=== PATIENT | female | born 1975 | race Caucasian/White ===

== ENCOUNTER 2018-01-18 23:14 | Emergency (ER) | payer SELFPAY ==
[2018-01-18] MEDS ORDERED: ONDANSETRON 4 MG TABLET PO ONE (23:25)
[2018-01-18] MEDS ORDERED: RANITIDINE HCL 150 MG TABLET (FP) PO ONE (23:25)
--- NOTE | 2018-01-18 23:34 | PDOC ---
History of Present Illness - General Chief Complaint: Allergic Reaction Stated Complaint: ALLERGIC REACTION Time Seen by Provider: 01/18/18 23:24 History Source: Patient Exam Limitations: No Limitations - History of Present Illness Initial Comments: 01/19/18 01:01 42-year-old female with past medical history mitral valve prolapse presents with ALLERGIC reaction after eating a cheese ball. Patient ate some food and started developing nausea, rash and throat closing-like sensation of difficulty breathing. Denies chest pain or syncope. Past History - Past Medical History Allergies/Adverse Reactions: Allergies Allergy/AdvReac Type Severity Reaction Status Date / Time acetaminophen [From Tylenol] Allergy Verified 01/18/18 23:24 aspirin Allergy Verified 01/18/18 23:24 ibuprofen Allergy Verified 01/18/18 23:23 sulfur [From Sulfur-8] Allergy Verified 01/18/18 23:23 Home Medications: Ambulatory Orders Diphenhydramine HCl [Benadryl -] 25 mg PO Q6H PRN #28 capsule 01/19/18 Famotidine [Pepcid] 20 mg PO BID PRN #20 tablet 01/19/18 Ondansetron HCl [Zofran] 4 mg PO Q8H PRN #12 tablet 01/19/18 Prednisone [Deltasone] 60 mg PO DAILY #6 tablet 01/19/18 Review of Systems - Review of Systems Able to Perform ROS?: Yes Comments:: 01/19/18 01:01 GENERAL/CONSTITUTIONAL: [No fever or chills. No weakness. No weight change.] HEAD, EYES, EARS, NOSE AND THROAT: [No change in vision. No ear pain or discharge. No sore throat.] CARDIOVASCULAR: [No chest pain] + difficulty breathing RESPIRATORY: [No cough, wheezing, or hemoptysis.] GASTROINTESTINAL: [No vomiting, diarrhea or constipation. No rectal bleeding.] + nausea GENITOURINARY: [No dysuria, frequency, or change in urination.] MUSCULOSKELETAL: [No joint or muscle swelling or pain. No neck or back pain.] SKIN AND BREASTS: [No rash or easy bruising.] NEUROLOGIC: [No headache, vertigo, loss of consciousness, or loss of sensation.] PSYCHIATRIC: [No depression or anxiety.] ENDOCRINE: [No increased thirst. No abnormal weight change.] HEMATOLOGIC/LYMPHATIC: [No anemia, easy bleeding, or history of blood clots.] ALLERGIC/IMMUNOLOGIC: [No hives or skin allergy. No latex allergy.] *Physical Exam - Physical Exam Comments: 01/19/18 01:02 GENERAL: Awake, alert, and fully oriented, in no acute distress HEAD: No signs of trauma EYES: PERRLA, EOMI, sclera anicteric, conjunctiva clear ENT: Auricles normal inspection, hearing grossly normal, nares patent, oropharynx clear without exudates. Moist mucosa NECK: Normal ROM, supple, LUNGS: Breath sounds equal, clear to auscultation bilaterally. No wheezes, and no crackles HEART: Regular rate and rhythm, normal S1 and S2, no murmurs, rubs or gallops ABDOMEN: Soft, nontender, normoactive bowel sounds. No guarding, no rebound. No masses EXTREMITIES: Normal range of motion, no edema. No clubbing or cyanosis. No cords, erythema, or tenderness NEUROLOGICAL: Cranial nerves II through XII grossly intact. Normal speech, normal gait SKIN: Warm, Dry, normal turgor, no rashes or lesions noted. Medical Decision Making - Medical Decision Making 01/18/18 23:31 A portion of this note was documented by scribe services under my direction. I have reviewed the details of the note, within reason, and agree with the documentation with the following case summary and management plan written by me. Patient treated in the ED. Nursing notes are reviewed and incorporated into the medical decision-making. Vital signs reviewed. Peripheral IV access obtained by the nurse, laboratory studies are drawn and sent, reviewed and interpreted by myself. 42-year-old female with past medical history mitral valve prolapse presents with ALLERGIC reaction after eating a cheese ball. Patient ate some food and started developing nausea, rash and throat closing-like sensation of difficulty breathing. Denies chest pain or syncope. Patient is having ALLERGIC reaction. Patient was given 50 mg of IM Benadryl and 10m g of IM Decadron by EMS. Patient airway status is preserved. We'll give more medications, Zofran, Zantac and observe the patient. Patient is a difficult IV stick and the patient prefers oral medications which I'm okay with. 01/19/18 01:02 Patient has been observed and feels significantly better. Will have the patient discharged home with strict return precautions. Will give her a referral to an fire prevention forester. Pt states that she absolutely does not want epipen as her chef & owner recommended against it 2/2 MVP. Will advise her to check in with her chef & owner regarding this and have her follow up. I discussed the physical exam findings, ancillary test results and final diagnoses with the patient. I answered all of the patient's questions. The patient was satisfied with the care received and felt comfortable with the discharge plan and treatment plan. The patient will call their primary care physician within 24 hours to arrange follow-up and will return to the Emergency Department with any new, persistant or worsening symptoms. *DC/Admit/Observation/Transfer Diagnosis at time of Disposition: Allergic reaction Qualifiers: Encounter type: initial encounter Qualified Code(s): T78.40XA - Allergy, unspecified, initial encounter - Discharge Dispostion Disposition: HOME Condition at time of disposition: Good Decision to Admit order: No - Prescriptions Prescriptions: Diphenhydramine HCl [Benadryl -] 25 mg PO Q6H PRN #28 capsule PRN Reason: Rash / Itching Famotidine [Pepcid] 20 mg PO BID PRN #20 tablet PRN Reason: Gastritis Ondansetron HCl [Zofran] 4 mg PO Q8H PRN #12 tablet PRN Reason: Nausea Prednisone [Deltasone] 60 mg PO DAILY #6 tablet - Referrals Referrals: Ghassan Thapa MD [Staff Physician] - - Patient Instructions Printed Discharge Instructions: DI for General Allergic Reactions Additional Instructions: Please take the medications as prescribed. For the next two days, take the prednisone. This medication can cause acid reflux (gastritis), so please take with food. You may take 20 mg pepcid every 12 hours as needed for gastritis. Take 25 mg benadryl every 6 to 8 hours as needed for itching. For nausea, take zofran as needed as prescribed. It is very important that you make an appointment with an fire prevention forester. Avoid cheese balls. Call and schedule an appointment with an fire prevention forester. Print Language: PANAMANIAN - Post Discharge Activity
[2018-01-18 23:44] VITALS: BMI 21.7
[2018-01-19 00:59] VITALS: BP 108/72; PULSE 78
== END 2018-01-19 01:22 | disposition home or self-care (01) ==
LOC: FER 23:14
DX: T78.40XA Allergy, unspecified, initial encounter (principal)
CPT/HCPCS: 99282-25

== ENCOUNTER 2018-04-24 15:32 | Emergency (ER) | payer OTHER ==
--- NOTE | 2018-04-24 15:43 | PDOC ---
History of Present Illness - General Chief Complaint: Respiratory Stated Complaint: COLD SYMPTOMS FOR 3 DAYS Time Seen by Provider: 04/24/18 15:43 History Source: Patient Exam Limitations: No Limitations - History of Present Illness Initial Comments: HPI: 42 y/o female presenting to [facility] complaining of cough x3 days. States it is productive of yellow sputum. Endorses anterior chest wall pain only while coughing. Endorses shortness of breath but no change in activity level. Vomited three times over the past two days. Each episode described as nonbloody or bilious. Endorses generalized joint aches and fever to 100.0. Attempted relief with nebulized Ipratropium; this medication was [place]. Reports minimal relief. Pt denies respiratory history. Also attempted relief with Amoxicillin, which she had left over from old prescription. Son had similar symptoms two weeks ago. Medical Hx: - Pt denies past medical history. Denies prescription medications. Surgical Hx: - Pt denies past surgical history. Past History - Past Medical History Allergies/Adverse Reactions: Allergies Allergy/AdvReac Type Severity Reaction Status Date / Time ibuprofen Allergy Severe Difficulty Verified 04/24/18 15:36 Breathing acetaminophen [From Tylenol] Allergy Mild Rash Verified 04/24/18 15:36 aspirin Allergy Mild Rash Verified 04/24/18 15:36 levofloxacin Allergy Mild Rash Verified 04/24/18 15:36 sulfur [From Sulfur-8] Allergy Mild Rash Verified 04/24/18 15:36 Home Medications: Ambulatory Orders Azithromycin [Zithromax -] 250 mg PO UTDICT #6 tab 04/24/18 COPD: No - Suicide/Smoking/Psychosocial Hx Smoking History: Never smoked Have you smoked in the past 12 months: No Hx Alcohol Use: No Drug/Substance Use Hx: No Substance Use Type: None Review of Systems - Review of Systems Able to Perform ROS?: Yes Comments:: In addition to that documented in the HPI above, the additional ROS was obtained : Constitutional: Endorses fevers and chills Eyes: Denies vision changes ENMT: Denies sore throat CV: Per HPI Resp: Per HPI GI: Endorses vomiting. Denies diarrhea : Denies painful urination MSK: Denies recent trauma Skin: Denies new rashes Neuro: Denies new numbness or tingling or weakness Endocrine: Denies polyuria Heme: Denies bleeding or bruising *Physical Exam - Physical Exam Comments: Constitutional: Well-developed, well-nourished, nontoxic female in no acute distress or obvious discomfort. Found semi-fowlers on hospital bed. Initially observed walking unassisted through the department without difficulty. Alert and oriented x4. Answered all questions appropriately and completely. Speech was non-labored, non-pressured. Coughing during exam, dry sounding. Head: Normocephalic. No obvious external signs of trauma. Eyes: Pupils 4mm and PERRL bilaterally. Sclerae white. Conjunctiva moist and not injected. EARS: Hearing grossly intact. NOSE: No nasal discharge. THROAT: Oral cavity and pharynx normal. No inflammation, swelling, exudate, or lesions. Moist mucosa. Teeth and gingiva in good general condition. Neck: Supple, trachea is midline. Cardiovascular: Regular rate and regular rhythm. No murmur, rubs, clicks, or gallops. Peripheral pulses: Radial pulses full. Respiratory: Breathing unlabored. Equal chest rise and fall. Mild end expiratory wheezing diffusely. No stridor, rhonchi, or focal consolidation. Gastrointestinal: abdomen is soft, non-tender, non-distended. Neuro: Alert and oriented. Moving all four extremities spontaneously. Gait normal. Skin: Warm, dry, and intact. No bruising, rashes, or other lesions. Cap refill < 2 seconds. Psych: Affect: appropriate. Mood: normal. Medical Decision Making - Medical Decision Making *Reviewed vital signs, nursing notes, and prior visit documentation (if available). 42 y/o female presenting with cough x3 days with 3 episodes of vomiting. No h/o of respiratory disease. Attempted relief with Ipratropium and Amoxicillin. Afebrile. Vitals unremarkable for hypotension or tachycardia. Physical exam as described above. Pt well appearing. Suspect viral URI versus bronchitis. Low suspicion for pneumonia. Will obtain CXR to further evaluate. Ordered single DuoNeb for wheeze. CXR unremarkable for acute cardiopulmonary process per ED wet read. Formal radiology report pending. Continue to have low suspicion for pneumonia. Repeat chest auscultation improved. Wheezing resolved. Good air movement bilaterally. Even though symptoms are likely viral in origin, will prescribe Z-pack in order to complete outpatient antibiotic therapy pt self initiated. Discussed imaging results with pt. Answered all questions. Provided return precautions. Pt expressed verbal understanding and agreement with plan to discharge home with outpatient follow up. *DC/Admit/Observation/Transfer Diagnosis at time of Disposition: Cough - Discharge Dispostion Disposition: HOME Condition at time of disposition: Stable Decision to Admit order: No - Prescriptions Prescriptions: Azithromycin [Zithromax -] 250 mg PO UTDICT #6 tab - Referrals - Patient Instructions Printed Discharge Instructions: DI for Viral Upper Respiratory Infection -- Adult Additional Instructions: You were seen today for coughing and general malaise for the past three days. Your chest xray does not show signs of a pneumonia. Your symptoms are likely caused by a upper respiratory viral infection. Antibiotics do not help with viral infections but because you started taking Augmentin, I have sent a prescription for Azithromycin to your pharmacy. Stop taking the Augmentin and start taking the Azithromycin as directed on the package insert. You should follow up with your primary care doctor within the next week to make sure you are healing. Go to the nearest emergency department if your condition worsens or you feel like you need additional emergency evaluation. Lo kumar visto hoy por toser y malestar general sangita los ltimos jazmin nuñez. Macdonald radiografa de trax no muestra signos de neumona. Renae sntomas son probablemente causados ??por jorgito infeccin viral del tracto respiratorio superior. Los antibiticos no ayudan con las infecciones virales, clarissa rodrigo comenz a silas Augmentin, le envi jorgito receta de azitromicina a macdonald farmacia. Deje de silas Augmentin y comience a silas Azithromycin rodrigo se indica en el prospecto. Debe hacer un seguimiento con macdonald mdico de atencin primaria dentro de la prxima semana para asegurarse de que est sanando. Dirjase al departamento de emergencias ms cercano si macdonald condicin empeora o si simon que necesita jorgito evaluacin de emergencia adicional. Print Language: TURKISH - Post Discharge Activity
[2018-04-24 15:54] VITALS: BP 125/74; PULSE 106; TEMP 99.3; BMI 26.4
[2018-04-24] MEDS ORDERED: ALBUTEROL SO4 2.5/IPRATROPIUM 0.5 INH SOL 3 ML VIAL.NEB. NEB ONE ×2 (16:00→16:04)
--- NOTE | 2018-04-24 16:15 | PDOC ---
Attending Attestation - Resident Resident Name: Musa Bloom - ED Attending Attestation I have performed the following: I have examined & evaluated the patient, The case was reviewed & discussed with the resident, I agree w/resident's findings & plan - HPI HPI: 04/24/18 16:12 42 y/o female with 3 days hx of cough, congestion. Started herself on left over Augmentin 2 days ago and took Nebulizer treatment (Ipatropium), but no hx of asthma. States to have some joint pain and fever. No traveling. Son was home sick 2 weeks ago. No N/V/d/C. Currently breast feeding her 2 year old child. 04/24/18 16:14 - Physicial Exam PE: 04/24/18 16:14 VS stable HEENT: unremarkable Heart: RRR w/o murmur Lungs: coarse breath sounds with occasional expiratory wheeze Abd: soft non tender +BS EXT No C/C/E, no calf tenderness b/l Neuro: grossly intact, no focal deficits noted - Medical Decision Making 04/24/18 16:48 Pt feeling better after treatment Will switch to Z-pack for URI CXR NAD Pt is in agreement with plan Discussed and agree with Dr. Bloom Final Dx: URI
== END 2018-04-24 17:25 | disposition home or self-care (01) ==
LOC: FER 15:32
PROC: 3E0F7GC Introduction of Other Therapeutic Substance into Respiratory Tract, Via Natural or Artificial Opening (ICD-10-PCS; principal; 2018-04-24)
DX: R05 Cough (principal)
CPT/HCPCS: 71046-TC-FY; 94640; 99282-25

== ENCOUNTER 2018-10-02 10:28 | Emergency (ER) | payer OTHER | END 2018-10-02 13:50 | disposition home or self-care (01) | LOC: FER 10:28 ==

== ENCOUNTER 2019-01-01 22:07 | Emergency (ER) | payer OTHER ==
--- NOTE | 2019-01-01 22:11 | PDOC ---
History of Present Illness - General Chief Complaint: Pain Stated Complaint: PAIN RIGHT HAND HEADACHE, FEELS SOB Time Seen by Provider: 01/01/19 22:10 - History of Present Illness Initial Comments: This 43-year-old woman (mainly Slovak-speaking ; interpretation by hospital staff ) with a history of gastritis (H. Pylori) and mitral valve prolapse presents with episode of right hand pain, headache and lightheadedness soon after eating dinner. Patient states that she ate a certain package preparation of beans (patient had the type of beans before but not this brand of preparation ) at dinner a few hours prior to presentation. Soon after eating the beans, she noted right hand discomfort(with small area of ecchymosis between fourth and fifth fingers), right-sided headache, mild lightheadedness and mild difficulty breathing. She denies lip or tongue swelling, throat closing sensation or wheezing. Patient states that she had similar but more severe symptoms 1 year ago and presented here (at that time, she had sensation of difficulty swallowing/throat closing and right wrist discomfort). She was treated with antihistamines and steroids with quick resolution of symptoms. Tonight symptoms have largely resolved prior to presentation . She had taken one tablet of prednisone that she had from previous prescription prior to coming to the ER. She is concerned that she is having an ALLERGIC reaction to the beans that she ate for dinner. Patient has multiple drug ALLERGIES but denies exposure to any of them prior to tonight's symptoms. PMD: Dr. Muro Denies smoking/alcohol use/other recreational drug use Past History - Past Medical History Allergies/Adverse Reactions: Allergies Allergy/AdvReac Type Severity Reaction Status Date / Time ibuprofen Allergy Severe Difficulty Verified 01/01/19 22:10 Breathing aspirin Allergy Mild Rash Verified 01/01/19 22:10 levofloxacin Allergy Mild Rash Verified 01/01/19 22:10 diclofenac Allergy Verified 01/01/19 22:10 metronidazole Allergy Verified 01/01/19 22:10 Sulfa (Sulfonamide Allergy Verified 01/01/19 22:10 Antibiotics) Home Medications: Ambulatory Orders NK [No Known Home Medication] 01/01/19 COPD: No GI Disorders: Yes (gastritis) - Suicide/Smoking/Psychosocial Hx Smoking History: Never smoked Have you smoked in the past 12 months: No Hx Alcohol Use: No Drug/Substance Use Hx: No Substance Use Type: None Review of Systems - Review of Systems Able to Perform ROS?: Yes Comments:: 12 point review of systems is negative except for what is noted in the history of present illness *Physical Exam - Physical Exam Comments: GENERAL: Adult female, alert and oriented 3, anxious but in no acute distress HEAD: Normal with no signs of trauma. EYES: PERRLA, EOMI, sclera anicteric, conjunctiva clear. ENT: Ears normal, nares patent, oropharynx clear without exudates. Moist mucous membranes. No lip/tongue/uvular edema NECK: Normal range of motion, supple without lymphadenopathy, JVD, or masses. No stridor LUNGS: Breath sounds equal, clear to auscultation bilaterally. No wheezes, and no crackles. HEART:Regular rate and rhythm, normal S1 and S2 without murmur, rub or gallop. ABDOMEN:.normal bowel sounds No guarding,tenderness or rebound.No masses No distention. EXTREMITIES: One cm by 1 cm minute faintly ecchymotic, slightly tender area between fourth and fifth right fingers, palmar aspect No other areas of ecchymosis/tenderness/edema noted on extremities NEUROLOGICAL: Cranial nerves II through XII grossly intact. Normal speech. No focal neurological deficits. Medical Decision Making - Medical Decision Making As noted above, this 43-year-old woman with a history of multiple drug ALLERGIES and an episode of food ALLERGY 1 year ago, presents with hand pain, headache, brief sensation of difficulty breathing and self resolved lightheadedness after eating a new preparation of beans this evening. She has had no upper airway edema, sensation of difficulty swallowing and the previous sensation of difficulty breathing has resolved. Exam as noted, without evidence of rash, upper airway edema or bronchospasm. Although patient may have food sensitivity to an ingredient in the dinner that she ate tonight, there is no significant evidence of ALLERGIC reaction occurring. She should return to the emergency room if she develops a rash or has any swelling of her lips/tongue, throat closing sensation/recurrent difficulty breathing sensation. She should plan on following up with her general doctor in the next 48 hours. Also, she states that she has not seen her house carpenter helper since her treatment for H. pylori gastritis one year ago: She should also follow-up for this condition. *DC/Admit/Observation/Transfer Diagnosis at time of Disposition: Food sensitivity headache - Discharge Dispostion Disposition: HOME Condition at time of disposition: Stable - Referrals Referrals: Yao Muro [Primary Care Provider] - 3 days - Patient Instructions Additional Instructions: clear liquids , advance as tolerated avoid dejesus preparation that you ate tonight tylenol as needed for headache followup with your general doctor within 2-3 days followup with your house carpenter helper within 1-2 weeks return to ER if you have difficulty breathing or swallowing, more areas of bruising - Post Discharge Activity
[2019-01-01 22:18] VITALS: BP 132/97; PULSE 81; TEMP 98; BMI 27.4
== END 2019-01-01 23:00 | disposition home or self-care (01) ==
LOC: FER 22:07
DX: G44.89 Other headache syndrome (principal)
CPT/HCPCS: 99281-25